=== PATIENT | male | born 1990 | race African-American/Black ===

== ENCOUNTER 2020-07-11 01:51 | Day surgery (SDC) | payer MEDICAID ==
[~2020-07-11] VITALS: Ht 175.3 cm; Wt 129.3 kg
[2020-07-11] MEDS ORDERED: MORPHINE SULFATE 4 MG/ML, 1ML IVPush PRN ×2 (03:30→06:00)
[2020-07-11] MEDS ORDERED: ONDANSETRON 2MG/ML, 2ML IVPush ONE (03:30)
[2020-07-11 04:02] LABS: BASOPHILS % (AUTO) 0 % (0-1); EOSINOPHILS % (AUTO) 2 % (1-7); LYMPHOCYTES % (AUTO) 8 % (22-44); MD NO; MEAN CORPUSCULAR HEMOGLOBIN 29.6 pg (27.5-34.5); MEAN CORPUSCULAR HGB CONC 33.1 g/dL (33.2-36.2); MEAN PLATELET VOLUME 8.4 fL (7.4-10.4); MONOCYTES % (AUTO) 8 % (2-9); NEUTROPHILS % (AUTO) 82 % (42-75); PLATELET COUNT 195 x10^3/uL (130-400); RED BLOOD COUNT 5.29 x10^6/uL (4.38-5.82); RED CELL DISTRIBUTION WIDTH 14.7 % (9.4-14.8)
[2020-07-11 04:13] LABS: ALANINE AMINOTRANSFERASE 30 U/L (12-78); ALBUMIN 3.8 g/dL (3.4-5.0); ANION GAP 4 mmol/L (5-15); CALCIUM 8.9 mg/dL (8.5-10.1); CHLORIDE 106 mmol/L (98-107); CREATININE 1.07 mg/dL (0.7-1.3)
[2020-07-11 04:15] LABS: ALKALINE PHOSPHATASE 96 U/L (45-117); BILIRUBIN,TOTAL 0.3 mg/dL (0.2-1.0); TOTAL PROTEIN 7.6 g/dL (6.4-8.2)
[2020-07-11] MEDS ORDERED: ONDANSETRON 2MG/ML, 2ML ONE ×2 (04:22→08:25)
[2020-07-11] MEDS ORDERED: MORPHINE SULFATE 4 MG/ML, 1ML ONE (04:23)
[2020-07-11] MEDS ORDERED: OMNIPAQUE 350 MG/ML, 100ML BOTTLE ONE (04:36)
[2020-07-11 04:53] LABS: MICROSCOPIC NOT IND
--- NOTE | 2020-07-11 05:00 | NUR ---
BEDSIDE REPORT FROM HARESH RN, PT CARE TRANSFERRED AT THIS TIME. PT NAD, RESTING ON GURNEY, APPEARS COMFORTABLE, SO AT BS, MONITORING IN PLACE. PT MEDICATED PER APR BY HARESH, PT UA SENT TO LAB. BOY.
[2020-07-11] MEDS ORDERED: CEFTRIAXONE 1,000 MG in DEXTROSE 5% 50 ML IVPB ONE (05:30)
[2020-07-11] MEDS ORDERED: ONDANSETRON 2MG/ML, 2ML IVPush PRN ×2 (06:00→08:30)
--- NOTE | 2020-07-11 06:01 | NUR ---
pt medicated per apr, , resting on gurney, appears comfortable, WHO form started, consent form at bs but not yet signed d/t surgeon not speaking to pt yet. pt denies need for additional pain medication despite discomfort. pt SO at bs. bed in lowest, rails engaged, call light on lap. pt covid swab walked to lab. tm.
[2020-07-11 06:28] VITALS: BP 120/68
--- NOTE | 2020-07-11 06:51 | NUR ---
bedside report to herlinda guadarrama, pt care transferred at this time.
[2020-07-11] MEDS ORDERED: BUPIVACAINE/PF 0.5% ONE (07:01)
--- NOTE | 2020-07-11 07:13 | NUR ---
THROUGHPUT RN: SPOKE WITH OR, PT SCHEDULED FOR [id number]
[2020-07-11] MEDS ORDERED: CHLORHEXIDINE 15 ML UDC PO ONE (08:00)
[2020-07-11] MEDS ORDERED: FENTANYL PF 250 MCG/5ML ONE (08:13)
[2020-07-11] MEDS ORDERED: MIDAZOLAM 1 MG/ML, 2ML ONE (08:13)
[2020-07-11] MEDS ORDERED: DEXAMETHASONE 4 MG/ML, 1ML ONE (08:25)
[2020-07-11] MEDS ORDERED: KETOROLAC 30 MG/1 ML ONE (08:25)
[2020-07-11] MEDS ORDERED: CEFAZOLIN 1,000 MG ONE (08:25)
[2020-07-11] MEDS ORDERED: ROCURONIUM 10 MG/ML,10ML ONE (08:25)
[2020-07-11] MEDS ORDERED: PROPOFOL 10 MG/ML, 20ML ONE (08:25)
[2020-07-11] MEDS ORDERED: NEOSTIGMINE 1 MG/ML, 10ML ONE (08:25)
[2020-07-11] MEDS ORDERED: SUCCINYLCHOLINE 20 MG/ML, 10ML ONE (08:25)
[2020-07-11] MEDS ORDERED: GLYCOPYRROLATE 0.2MG/1ML, 5ML ONE (08:25)
[2020-07-11] MEDS ORDERED: ACETAMINOPHEN 325 MG TABLET PO PRN (08:30)
[2020-07-11] MEDS ORDERED: LORazepam 2 MG/ML, 1ML IVPush PRN (08:30)
[2020-07-11] MEDS ORDERED: MEPERIDINE/PF 25MG/0.5ML IVPush PRN (08:30)
[2020-07-11] MEDS ORDERED: METHOCARBAMOL 1,000 MG in DEXTROSE 5% 100 ML IV PRN (08:30)
[2020-07-11] MEDS ORDERED: HYDROmorphone 1 MG/ML, 1ML INJ IVPush PRN (08:30)
[2020-07-11] MEDS ORDERED: PROMETHAZINE 25 MG/ML, 1ML IVPush PRN (08:30)
[2020-07-11] MEDS ORDERED: LABETALOL 5MG/ML, 20ML IV PRN (08:30)
[2020-07-11] MEDS ORDERED: EPHEDRINE 50 MG/ML, 1ML IVPush PRN (08:30)
[2020-07-11] MEDS ORDERED: FENTANYL PF 100 MCG/2ML IV PRN (08:30)
[2020-07-11] MEDS ORDERED: hydrALAzine 20 MG/ML, 1ML IV PRN (08:30)
[2020-07-11] MEDS ORDERED: OXYC1TAB14 PO (09:11)
[2020-07-11] MEDS ORDERED: FENTANYL PF 100 MCG/2ML ONE (09:44)
[2020-07-11] MEDS ORDERED: OXYcodone 5 MG/5 ML ORAL.SOL UDC ONE (09:44)
[2020-07-11] MEDS ORDERED: ACETAMINOPHEN 650 MG/20.3 ML UDC ONE (09:44)
[2020-07-11] MEDS: OXYcodone 5 MG/5 ML ORAL.SOL UDC PO PRN ×2 (09:46→10:52)
== END 2020-07-11 12:05 | disposition home or self-care (01) ==
LOC: ED 03:07 → UNDOADMIN 05:53 → OUT 05:53 → EDIP 05:53 → UNDODISIN 12:05 → OUT 12:05
PROVIDERS: ATTEND Surgery
DX: K35.30 Acute appendicitis with localized peritonitis, without perforation or gangrene (principal); E66.01 Morbid (severe) obesity due to excess calories; F17.210 Nicotine dependence, cigarettes, uncomplicated; Z20.822 Contact with and (suspected) exposure to COVID-19; Z68.41 Body mass index [BMI] 40.0-44.9, adult
CPT/HCPCS: 36415; 44970; 74177; 80053; 81003; 83690; 85025; 87635; 88304; 96365; 96375; 99285; 99406; J0330; J0690; J0696; J1100; J1885; J2250; J2270; J2405; J2704; J2710; J3010; Q9967

== ENCOUNTER 2020-09-14 13:16 | Emergency (ER) | payer MEDICAID, OTHER ==
[~2020-09-14] VITALS: Ht 175.3 cm; Wt 129.3 kg
[~2020-09-14 13:16] MED LIST: OXYC1TAB14 PO
[2020-09-14 13:24] VITALS: BP 132/77
[2020-09-14] MEDS ORDERED: KETOROLAC 30 MG/1 ML ONE (14:16)
[2020-09-14] MEDS ORDERED: KETOROLAC 30 MG/1 ML IM ONE (14:30)
== END 2020-09-14 15:28 | disposition home or self-care (01) ==
LOC: ED 15:18
DX: S39.012A Strain of muscle, fascia and tendon of lower back, initial encounter (principal); Z90.49 Acquired absence of other specified parts of digestive tract; X50.0XXA Overexertion from strenuous movement or load, initial encounter; Y93.89 Activity, other specified; Y92.69 Other specified industrial and construction area as the place of occurrence of the external cause; Y99.0 Civilian activity done for income or pay
CPT/HCPCS: 96372; 99283; J1885

== ENCOUNTER 2020-10-01 08:19 | Emergency (ER) | payer OTHER ==
[~2020-10-01] VITALS: Ht 175.3 cm; Wt 130.0 kg
[2020-10-01 08:26] VITALS: BP 145/85
--- NOTE | 2020-10-01 08:45 | NUR ---
PT RESTING ON AN E.R. GURNEY AWAITING AN MD TO ASSESS.
[2020-10-01] MEDS ORDERED: KETOROLAC 60 MG/2 ML ONE (09:27)
[2020-10-01] MEDS ORDERED: KETOROLAC 30 MG/1 ML IM ONE (09:30)
--- NOTE | 2020-10-01 10:06 | NUR ---
PT AMBULATORY WITH A STEADY GAIT. WE WILL BEGIN TO PREPARE FOR D/C AT THIS TIME.
== END 2020-10-01 10:18 | disposition home or self-care (01) ==
LOC: ED 09:23
DX: G89.11 Acute pain due to trauma (principal); M54.5 Low back pain; X58.XXXA Exposure to other specified factors, initial encounter; Y93.89 Activity, other specified; Y92.89 Other specified places as the place of occurrence of the external cause; Y99.8 Other external cause status
CPT/HCPCS: 96372; 99283; J1885

== ENCOUNTER 2020-10-05 12:28 | Emergency (ER) | payer MEDICAID, OTHER ==
[~2020-10-05] VITALS: Ht 175.3 cm; Wt 127.0 kg
[2020-10-05] MEDS ORDERED: ACETAMINOPHEN 500 MG TABLET PO ONE (13:30)
[2020-10-05] MEDS ORDERED: IBUPROFEN 600 MG TABLET PO ONE (13:30)
[2020-10-05] MEDS ORDERED: ACETAMINOPHEN 500 MG TABLET ONE (13:49)
[2020-10-05] MEDS ORDERED: IBUPROFEN 600 MG TABLET ONE (13:49)
[2020-10-05 14:10] LABS: BASOPHILS % (AUTO) 0 % (0-1); EOSINOPHILS % (AUTO) 0 % (1-7); LYMPHOCYTES % (AUTO) 12 % (22-44); MEAN CORPUSCULAR HEMOGLOBIN 29.1 pg (27.5-34.5); MEAN CORPUSCULAR HGB CONC 33.5 g/dL (33.2-36.2); MEAN PLATELET VOLUME 8.6 fL (7.4-10.4); MONOCYTES % (AUTO) 7 % (2-9); NEUTROPHILS % (AUTO) 80 % (42-75); PLATELET COUNT 136 x10^3/uL (130-400); RED BLOOD COUNT 5.51 x10^6/uL (4.38-5.82); RED CELL DISTRIBUTION WIDTH 15.1 % (9.4-14.8)
[2020-10-05 14:22] LABS: ALBUMIN 3.7 g/dL (3.4-5.0); ANION GAP 11 mmol/L (5-15); CALCIUM 8.7 mg/dL (8.5-10.1); CHLORIDE 103 mmol/L (98-107)
[2020-10-05 14:27] LABS: ALANINE AMINOTRANSFERASE 46 U/L (12-78); ALKALINE PHOSPHATASE 109 U/L (45-117); BILIRUBIN,TOTAL 0.7 mg/dL (0.2-1.0); CREATININE 1.03 mg/dL (0.7-1.3)
[2020-10-05 14:34] VITALS: BP 121/79
== END 2020-10-05 15:06 | disposition home or self-care (01) ==
LOC: ED 14:53
DX: U07.1 COVID-19 (principal); J06.9 Acute upper respiratory infection, unspecified; J18.9 Pneumonia, unspecified organism; R00.0 Tachycardia, unspecified
CPT/HCPCS: 36415; 71045; 80053; 83605; 85025; 87040; 99284; U0003; U0005

== ENCOUNTER 2020-10-11 15:18 | Emergency (ER) | payer MEDICAID, OTHER ==
[~2020-10-11] VITALS: Ht 175.3 cm; Wt 124.0 kg
[2020-10-11] MEDS ORDERED: ONDANSETRON ODT 4 MG PO ONE (15:30)
[2020-10-11] MEDS ORDERED: ACETAMINOPHEN 500 MG TABLET PO ONE (15:30)
[2020-10-11] MEDS ORDERED: ACETAMINOPHEN 500 MG TABLET ONE (16:04)
[2020-10-11] MEDS ORDERED: ONDANSETRON ODT 4 MG ONE (16:04)
--- NOTE | 2020-10-11 16:20 | NUR ---
20 GAUGE IV STARTED LEFT AC, PATIENT MEDICATED PER eMAR. NADN, CONNECTED TO MONITOR, RA SATURATION IS 92%-95%, CALL LIGHT WITHIN REACH.
[2020-10-11] MEDS ORDERED: SODIUM CHLORIDE 0.9% 1,000ML IVBOLUS ONE (16:30)
[2020-10-11] MEDS ORDERED: DIPHENHYDRAMINE 25 MG CAPSULE PO ONE (16:30)
[2020-10-11] MEDS ORDERED: SODIUM CHLORIDE FLUSH 10ML SYR IVF ONE (16:30)
[2020-10-11] MEDS ORDERED: CASIRIVIMAB 600 MG, IMDEVIMAB (REGN10987) 600 MG in SODIUM CHLORIDE 0.9% 250 ML IVPB ONE (17:30)
[2020-10-11] MEDS ORDERED: FILTER 0.22 MICRON IV ONE (17:30)
--- NOTE | 2020-10-11 17:43 | NUR ---
REGENERON INFUSION STARTED, PATIENT GIVEN EDUCATIONAL HANDOUT AND ALL QUESTIONS ANSWERED. VSS, CALL LIGHT WITHIN REACH.
[2020-10-11] MEDS ORDERED: IBUPROFEN 600 MG TABLET PO ONE (18:00)
[2020-10-11] MEDS ORDERED: IBUPROFEN 600 MG TABLET ONE (18:07)
--- NOTE | 2020-10-11 18:09 | NUR ---
PATIENT TOLERATING REGENERON INFUSION WELL, HARMEETN, VSS, CALL LIGHT WITHIN REACH. 35 MINUTES LEFT ON INFUSION.
[2020-10-11 20:08] VITALS: BP 143/89
== END 2020-10-11 20:10 | disposition home or self-care (01) ==
LOC: ED 17:51
DX: U07.1 COVID-19 (principal); J12.82 Pneumonia due to coronavirus disease 2019; R42 Dizziness and giddiness; Z87.891 Personal history of nicotine dependence
CPT/HCPCS: 71045; 96360; 99283; J7030; M0243; Q0162